=== PATIENT | male | born 1955 | race Caucasian/White ===

== ENCOUNTER 2021-08-23 01:24 | Emergency (ER) | payer SELFPAY ==
--- NOTE | 2021-08-23 01:36 | ED ---
General Adult HPI - General Stated complaint: Covid Test, [place] Time Seen by Provider: 08/23/21 01:32 - History of Present Illness Initial comments: Patient presents to the emergency department today for COVID-19 testing in order to cross border into [place]. Denies any current symptoms or recent exposures. Patient denies need for further medical screening or examination. - Related Data Home Medications Medication Instructions Recorded Confirmed No Known Home Medications 08/23/21 08/23/21 Allergies Allergy/AdvReac Type Severity Reaction Status Date / Time No Known Allergies Allergy Verified 08/23/21 01:40 Review of Systems ROS Statement: Those systems with pertinent positive or pertinent negative responses have been documented in the HPI. ROS Other: All systems not noted in ROS Statement are negative. General Exam General appearance: alert, in no apparent distress Neurological exam: Present: alert, oriented X3 Skin exam: Present: warm, dry, normal color. Absent: rash Course Vital Signs 08/23/21 01:37 Temperature 98.0 F Pulse Rate 89 Respiratory 20 Rate Blood Pressure 123/65 O2 Sat by Pulse 99 Oximetry Medical Decision Making - Medical Decision Making Patient presented for COVID-19 testing in order to cross border into [place]. Did not have any symptoms. Declined any need for further exam or screening. Patient was given copy of result and discharged. My attending is Dr. Ruiz. Disposition Clinical Impression: Encounter for laboratory testing for COVID-19 virus Disposition: HOME SELF-CARE Condition: Good Instructions (If sedation given, give patient instructions): Coronavirus Disease 2019 (COVID-19) Is patient prescribed a controlled substance at d/c from ED?: No Referrals: None,Stated [Primary Care Provider] - 1-2 days Time of Disposition: 01:36
[2021-08-23 01:40] VITALS: BP 123/65; PULSE 89; RESP 20; TEMP 98
== END 2021-08-23 02:45 | disposition home or self-care (01) ==
LOC: EC 01:24
DX: Z11.52 Encounter for screening for COVID-19 (principal); Z20.822 Contact with and (suspected) exposure to COVID-19
CPT/HCPCS: 87635; 99282